=== PATIENT | female | born 1935 | race Caucasian/White ===

== ENCOUNTER 2019-12-30 22:06 | Observation (INO) | payer MEDICARE ==
[~2019-12-30] VITALS: Ht 165.1 cm; Wt 68.6 kg
--- NOTE | 2019-12-30 22:12 | PHYS DOC ---
General Adult HPI: HPI: ""...I have this bad vomiting spell..I ve had it before...but it always goes away in about a half hour...but not this time.. I did eat a little... Bit for breakfast.. But I went out with my daughter to [employer]... because she had to buy some stuff... but at about 330 I tried to eat and I got the severe chest pain and vomited up everything... Patient is a 84 year old female who presents with above hx and complaints severe chest and epigastric pain at 1530 hours. Pain radiates up into the left side of her chest. Patient's has remained nauseated since onset of her epigastric pain. Patient had a normal stool yesterday. Patient normally follows with Dr. Thomas. Has in the past follow-up with Dr. Costa for evaluation of her hypertension. Patient has not been able to take her hypertensive meds tonight because of the nausea and vomiting. No recent travel outside the [place] area. No specific ill contacts. Is on city water. No history of trauma. No history of bad food intake. Patient normally follows with Dr. Thomas for her care Review of Systems: Review of Systems: Constitutional: Denies fever or chills Eyes: Denies change in visual acuity HENT: Denies nasal congestion or sore throat Respiratory: Denies cough or shortness of breath Cardiovascular: Complains of central chest pain GI: Complaints of epigastric abdominal pain, nausea, vomiting. Denies, bloody stools or diarrhea : Denies dysuria Musculoskeletal: Denies back pain or joint pain Integument: Denies rash Neurologic: Denies headache, focal weakness or sensory changes Endocrine: Denies polyuria or polydipsia Lymphatic: Denies swollen glands Psychiatric: Denies depression or anxiety Heart Score: HEART Score for Chest Pain: HEART Score for Chest Pain Response (Comments) Value History Moderately Suspicious 1 ECG Nonspecific Repolarizatio 1 Age > 65 2 Risk Factors 1 or 2 Risk Factors 1 Troponin < Normal Limit 0 Total 5 Risk Factors: Risk Factors: DM, Current or recent (<one month) smoker, HTN, HLP, family history of CAD, obesity. Risk Scores: Score 0 - 3: 2.5% MACE over next 6 weeks - Discharge Home Score 4 - 6: 20.3% MACE over next 6 weeks - Admit for Clinical Observation Score 7 - 10: 72.7% MACE over next 6 weeks - Early Invasive Strategies Family History: Family History: Noncontributory to presentation. Current Medications: Current Meds: See nursing for home meds Allergies: Allergies: No known drug allergies Physical Exam: PE: Constitutional: Moderate acute distress, non-toxic appearance. [] HENT: Normocephalic, atraumatic, bilateral external ears normal, oropharynx dry,, no oral exudates, nose normal. [] Eyes: PERRLA, EOMI, conjunctiva normal, no discharge. Arcus Neck: Normal range of motion, no tenderness, supple, no stridor. [] Cardiovascular: Bradycardia heart rate regular rhythm, no murmur [] PMI to the left Lungs & Thorax: Bilateral breath sounds equal apex with few basilar crackles auscultation [] Abdomen: Bowel sounds normal, soft, no tenderness, no masses, no pulsatile masses. [] Skin: Warm, dry, no erythema, no rash. Poor turgor Back: No tenderness, no CVA tenderness. [] Extremities: No tenderness, no cyanosis, no clubbing, ROM intact, ankle edema. Arthritic changes Neurologic: Alert and oriented X 3, moves extremities on request, distal sensory, no dose focal deficits noted. [] Psychologic: Affect anxious, judgement normal, mood normal. [] EKG: EKG: My interpretation of EKG shows a sinus bradycardia 58 bpm. No findings acute STEMI of contralateral changes. [] Radiology/Procedures: Radiology/Procedures: [][address] [address] IMAGING REPORT Signed PATIENT: ZECHARIAH STINSON ACCOUNT: [id number] : 1935 LOCATION: ER AGE: 84 SEX: F EXAM STATUS: REG ER ORD. PHYSICIAN: JOHANA LUIS MD REASON: vomiting PROCEDURE: ACUTE ABDOMEN SERIES Exam: Acute abdominal series INDICATION: Vomiting TECHNIQUE: Frontal view of the chest with upright and supine views of the abdomen Comparisons: None FINDINGS: The cardiomediastinal silhouette and pulmonary vessels are within normal limits. The lung and pleural spaces are clear. Air and stool are noted throughout the colon to level the rectum in a nonobstructive bowel gas pattern. No suspicious masses or calcifications. Visualized osseous structures are unremarkable. IMPRESSION: 1. No acute cardiopulmonary process. 2. Nonobstructive bowel gas pattern. Electronically signed by: Carmencita Bloom MD (12/30/2019 11:08 PM) [id number] DICTATED AND SIGNED BY: CARMENCITA BLOOM MD DATE: 12/30/19 4180 CC: JOHANA LUIS MD; IRAM SANON ~ Course & Med Decision Making: Course & Med Decision Making Pertinent Labs and Imaging studies reviewed. (See chart for details) Patient admitted to Dr. Anderson with cardiology consult. Impression' 1. Chest pain 2. Elevated BUN and creatinine 3. Elevated d-dimer at 0.91 4. Bradycardia 5. Urinary tract infection [] Dragon Disclaimer: Dragon Disclaimer: This electronic medical record was generated, in whole or in part, using a voice recognition dictation system. Departure Departure: Disposition: 01 HOME/RESIDENCE PRIOR TO ADM Condition: STABLE Referrals: IRAM SANON (PCP) Justification of Admission: Justification of Admission: Justification of Admission Dx: Yes Angina: New-Onset Justification of Admission: Justification of Admission: Justification of Admission Dx: Yes CHF: Cardiac Arrhythmias Comments: CHEST PAIN Dragon Disclaimer This chart was dictated in whole or in part using Voice Recognition software in a busy, high-work load, and often noisy Emergency Department environment. It may contain unintended and wholly unrecognized errors or omissions. Dragon Disclaimer This chart was dictated in whole or in part using Voice Recognition software in a busy, high-work load, and often noisy Emergency Department environment. It may contain unintended and wholly unrecognized errors or omissions. JOHNAA LUIS MD Dec 30, 2019 22:11
[2019-12-30] MEDS ORDERED: ONDANSETRON PF 4 MG/2 ML VIAL. IVP ONE (22:40)
--- NOTE | 2019-12-30 23:10 | RAD ---
Exam: Acute abdominal series INDICATION: Vomiting TECHNIQUE: Frontal view of the chest with upright and supine views of the abdomen Comparisons: None FINDINGS: The cardiomediastinal silhouette and pulmonary vessels are within normal limits. The lung and pleural spaces are clear. Air and stool are noted throughout the colon to level the rectum in a nonobstructive bowel gas pattern. No suspicious masses or calcifications. Visualized osseous structures are unremarkable. IMPRESSION: 1. No acute cardiopulmonary process. 2. Nonobstructive bowel gas pattern. Electronically signed by: Carmencita Singh MD (12/30/2019 11:08 PM) [id number]
[2019-12-30] MEDS: IV RINGERS SOLUTION,LACTATED 1,000 ML IV SCH (23:33)
[2019-12-30 23:39] LABS: BASO # 0.1 x10^3/uL (0.0-0.2); BASO % 1 % (0-3); EOS # 0.2 x10^3/uL (0.0-0.7); EOS % 2 % (0-3); HEMOGLOBIN 12.3 g/dL (12.0-15.5); LYMPH # 1.8 x10^3/uL (1.0-4.8); LYMPH % 17 % (24-48); MEAN CORPUSCULAR HEMOGLOBIN 34 pg (25-35); MEAN CORPUSCULAR HGB CONC 34 g/dL (31-37); MEAN CORPUSCULAR VOLUME 98 fL (79-100); MONO # 0.9 x10^3/uL (0.0-1.1); MONO % 8 % (0-9); NEUT # 7.7 x10^3uL (1.8-7.7); NEUT % 73 % (31-73); PLATELET COUNT 306 x10^3/uL (140-400); RED BLOOD COUNT 3.66 x10^6/uL (3.50-5.40); RED CELL DISTRIBUTION WIDTH 13.7 % (11.5-14.5); WHITE BLOOD COUNT 10.5 x10^3/uL (4.0-11.0)
[2019-12-30 23:48] LABS: CALCIUM 9.5 mg/dL (8.5-10.1); GFR 23.9; POTASSIUM 3.6 mmol/L (3.5-5.1)
[2019-12-31] LABS: DIRECT BILIRUBIN 0.1 mg/dL (0.0-0.2); TOTAL BILIRUBIN 0.6 mg/dL (0.2-1.0); TOTAL PROTEIN 8.3 g/dL (6.4-8.2)
[2019-12-31 00:42] LABS: BACTERIA,URINE FEW /HPF (0-FEW); BILIRUBIN,URINE NEG (NEG); CLARITY,URINE HAZY; COLOR,URINE YELLOW; GLUCOSE,URINE NEG (NEG); NITRITE,URINE NEG (NEG); RBC,URINE OCC /HPF (0-2); SQUAMOUS EPITHELIAL CELL,UR FEW /LPF; UROBILINOGEN,URINE 0.2 mg/dL (0.2 mg/dL); WBC,URINE 20-40 /HPF (0-4)
[2019-12-31 00:43] LABS: BARBITURATES NEG (NEG); BENZODIAZEPINES NEG (NEG); CANNABINOIDS NEG (NEG); COCAINE NEG (NEG); METHADONE NEG (NEG); OPIATES NEG (NEG); PHENCYCLIDINE NEG (NEG)
[2019-12-31 00:44] LABS: AMPHETAMINE/METHAMPHETAMINE NEG (NEG)
[2019-12-31] MEDS ORDERED: ONDANSETRON PF 4 MG/2 ML VIAL. IVP ONE (01:30)
[2019-12-31] MEDS ORDERED: dilTIAZem 25 MG/5 ML VIAL IVP ONE (01:30)
[2019-12-31] MEDS ORDERED: levoFLOXacin 500 MG TABLET PO ONE (01:30)
[2019-12-31] MEDS ORDERED: ONDANSETRON PF 4 MG/2 ML VIAL. IVP PRN (02:00)
[2019-12-31] MEDS ORDERED: MORPHINE SULFATE 2 MG/ML DISP.SYRIN. IVP PRN (02:00)
[2019-12-31] MEDS: ASPIRIN CHEWABLE 81 MG TABLET. PO ONE ×2 (02:30→06:47)
--- NOTE | 2019-12-31 04:30 | NUR ---
The patient, ZECHARIAH STINSON, 84 y/o, F admitted by BASHIR HUNTER MD, to room 105, was given written information regarding hospital policies, unit procedures and contact persons. Valuables were checked and left with the patient. Medical history, family history and medications reviewed. Vital signs, physical and social needs assessed. Pt denies nausea or pain currently. She affirms she has this pain often due to a "hiatal hernia but usually the vomiting is just a little bit and doesn't last this long." Will continue to monitor.
[2019-12-31 05:10] VITALS: BP 161/73
[2019-12-31] MEDS ORDERED: LEVO75TA5 PO (05:10)
[2019-12-31] MEDS ORDERED: AMLO-186 PO (05:10)
[2019-12-31] MEDS ORDERED: ATOR10TA60 PO (05:10)
[2019-12-31] MEDS ORDERED: LEVO50TA5 PO (05:10)
[2019-12-31] MEDS ORDERED: CARV25TA2 PO (05:10)
[2019-12-31] MEDS ORDERED: CHLO25TA9 PO (05:10)
[2019-12-31] MEDS: IV RINGERS SOLUTION,LACTATED 1,000 ML IV SCH (06:47)
[2019-12-31] MEDS ORDERED: CARVEDILOL 12.5 MG TABLET PO SCH (08:00)
[2019-12-31] MEDS ORDERED: CHLORTHALIDONE 25 MG TABLET PO SCH (09:00)
[2019-12-31] MEDS ORDERED: FAMOTIDINE 20 MG/2 ML VIAL IVP SCH (09:00)
[2019-12-31] MEDS ORDERED: amLODIPine BESYLATE 5 MG TABLET PO SCH (09:00)
--- NOTE | 2019-12-31 10:15 | RAD ---
VENOUS LOWER EXT BILATERAL 12/31/2019 6:00 AM Clinical Information: Leg pain and bilateral lower extremity edema. Comparison: None. Technique: Multiple grayscale, color Doppler, and spectral Doppler sonographic images of the lower extremity venous structures were obtained. Findings: The right common femoral, femoral, and popliteal veins exhibit normal compression, respiratory phasicity, and augmentation. No intraluminal thrombi are identified. Color Doppler flow is demonstrated in the right posterior tibial veins. The left common femoral, femoral, and popliteal veins exhibit normal compression, respiratory phasicity, and augmentation. No intraluminal thrombi are identified. Color Doppler flow is demonstrated in the left posterior tibial veins. Greater saphenous veins are patent at the saphenofemoral junction. Impression: 1. No evidence of deep venous thrombosis. Electronically signed by: Lucretia Fabian MD (12/31/2019 10:11 AM) TUNDE
[2019-12-31 11:44] VITALS: BP 110/63
[2019-12-31 15:19] VITALS: BP 134/69
--- NOTE | 2019-12-31 15:21 | PDOC2 ---
CONSULT Date of Admission DATE: 12/31/19 TIME: 15:15 Reason for Consult: Chest pain Referring Physician: Dr. Anderson Chief Complaint Vomiting and chest pain Source: Chart review, Patient Problem List Problems Medical Problems: (1) Chest pain Status: Acute History of Present Illness The patient is an 84-year-old female who reported episodes of nausea and vomiting yesterday. She states that during 1 of her episodes of vomiting she developed chest pain and came to the emergency room. Patient has a history of occasional nausea and vomiting but no history of coronary disease or heart failure. EKG showed a sinus rhythm with no acute ischemic changes. Troponin has been normal x3. Other lab has shown an elevated creatinine of 2.0 and a potassium of 3.6. BNP was mildly elevated at 579. D-dimer was also mildly elevated 0.91 with a lower extremity venous ultrasound study showing no DVT. Acute abdominal series showed no acute changes. The patient states she is feeling significantly better today. Cardiovascular: HTN GI: GERD Renal/: Chronic renal insuff Family History: Hypertension Smoke: No ALCOHOL: none Current Medications Current Medications Lactated Ringer's 1,000 ml @ 100 mls/hr Q10H IV Last administered on 12/31/19at 06:47; Start 12/30/19 at 22:13; Stop 12/31/19 at 08:12; Status DC Ondansetron HCl (Zofran) 8 mg 1X ONCE IVP Last administered on 12/30/19at 23:33; Start 12/30/19 at 22:40; Stop 12/30/19 at 22:41; Status DC Levofloxacin (Levaquin) 500 mg 1X ONCE PO Last administered on 12/31/19at 01:46; Start 12/31/19 at 01:30; Stop 12/31/19 at 01:31; Status DC Diltiazem HCl (Cardizem Iv Push) 10 mg 1X ONCE IVP ; Start 12/31/19 at 01:30; Stop 12/31/19 at 01:31; Status Cancel Ondansetron HCl (Zofran) 4 mg 1X ONCE IVP Last administered on 12/31/19at 01:46; Start 12/31/19 at 01:30; Stop 12/31/19 at 01:31; Status DC Ondansetron HCl (Zofran) 4 mg PRN Q4HRS PRN IVP NAUSEA/VOMITING; Start 12/31/19 at 02:00; Stop 01/01/20 at 01:59 Morphine Sulfate (Morphine 2mg Syringe) 2 mg PRN Q4HRS PRN IVP PAIN; Start 12/31/19 at 02:00; Stop 01/01/20 at 01:59 Aspirin (Aspirin Chewable) 81 mg 1X ONCE PO ; Start 12/31/19 at 02:30; Stop 12/31/19 at 02:31; Status DC Famotidine (Pepcid Vial) 20 mg DAILY IVP Last administered on 12/31/19at 09:51; Start 12/31/19 at 09:00 Amlodipine Besylate (Norvasc) 5 mg DAILY PO Last administered on 12/31/19at 09:51; Start 12/31/19 at 09:00 Atorvastatin Calcium (Lipitor) 10 mg HS PO ; Start 12/31/19 at 21:00 Chlorthalidone (Thalitone) 12.5 mg DAILY PO Last administered on 12/31/19at 09:51; Start 12/31/19 at 09:00 Levothyroxine Sodium (Synthroid) 50 mcg Q48H PO ; Start 01/02/20 at 06:00 Levothyroxine Sodium (Synthroid) 75 mcg Q48H PO ; Start 01/01/20 at 06:00 Carvedilol (Coreg) 12.5 mg BIDWMEALS PO Last administered on 12/31/19at 09:50; Start 12/31/19 at 08:00 Active Scripts Active Reported Levothyroxine Sodium 75 Mcg Tablet 1 Tab PO DAILY Levothyroxine Sodium 50 Mcg Tablet 1 Tab PO DAILY Chlorthalidone (Chlorthalidone) 25 Mg Tablet 12.5 Mg PO DAILY Atorvastatin Calcium 10 Mg Tablet 1 Tab PO HS Amlodipine Besylate 5 Mg Tablet 1 Tab PO DAILY Carvedilol 25 Mg Tablet 12.5 Mg PO BID Allergies: Coded Allergies: No Known Drug Allergies (Unverified , 12/30/19) General: YES: Fatigue Cardiovascular: yes: Chest Pain Gastrointestinal: YES: Nausea, Vomiting General: mild distress HEENT: Atraumatic Lungs: Clear to auscultation Heart: Regular rate Abdomen: Normal bowel sounds VITALS Vital Signs Date Time Temp Pulse Resp B/P (MAP) Pulse Ox O2 Delivery O2 Flow Rate FiO2 12/31/19 11:44 98.2 57 20 110/63 (79) 99 Room Air Labs Laboratory Tests Test 12/30/19 23:00 12/31/19 00:23 12/31/19 07:00 12/31/19 09:23 White Blood Count 10.5 x10^3/uL (4.0-11.0) Red Blood Count 3.66 x10^6/uL (3.50-5.40) Hemoglobin 12.3 g/dL (12.0-15.5) Hematocrit 36.0 % (36.0-47.0) Mean Corpuscular Volume 98 fL (79-100) Mean Corpuscular Hemoglobin 34 pg (25-35) Mean Corpuscular Hemoglobin Concent 34 g/dL (31-37) Red Cell Distribution Width 13.7 % (11.5-14.5) Platelet Count 306 x10^3/uL (140-400) Neutrophils (%) (Auto) 73 % (31-73) Lymphocytes (%) (Auto) 17 % (24-48) Monocytes (%) (Auto) 8 % (0-9) Eosinophils (%) (Auto) 2 % (0-3) Basophils (%) (Auto) 1 % (0-3) Neutrophils # (Auto) 7.7 x10^3uL (1.8-7.7) Lymphocytes # (Auto) 1.8 x10^3/uL (1.0-4.8) Monocytes # (Auto) 0.9 x10^3/uL (0.0-1.1) Eosinophils # (Auto) 0.2 x10^3/uL (0.0-0.7) Basophils # (Auto) 0.1 x10^3/uL (0.0-0.2) Prothrombin Time 10.1 SEC (9.4-11.4) Prothromb Time International Ratio 1.0 (0.9-1.1) Activated Partial Thromboplast Time 24 SEC (23-33) D-Dimer (Saniya) 0.91 mg/L (0.00-0.50) Sodium Level 138 mmol/L (136-145) Potassium Level 3.6 mmol/L (3.5-5.1) Chloride Level 101 mmol/L (98-107) Carbon Dioxide Level 26 mmol/L (21-32) Anion Gap 11 (6-14) Blood Urea Nitrogen 25 mg/dL (7-20) Creatinine 2.0 mg/dL (0.6-1.0) Estimated GFR (Cockcroft-Gault) 23.9 Glucose Level 98 mg/dL (70-99) Calcium Level 9.5 mg/dL (8.5-10.1) Magnesium Level 2.0 mg/dL (1.8-2.4) Total Bilirubin 0.6 mg/dL (0.2-1.0) Direct Bilirubin 0.1 mg/dL (0.0-0.2) Aspartate Amino Transf (AST/SGOT) 26 U/L (15-37) Alanine Aminotransferase (ALT/SGPT) 21 U/L (14-59) Alkaline Phosphatase 83 U/L (46-116) Creatine Kinase 157 U/L (26-192) Troponin I Quantitative < 0.017 ng/mL (0-0.055) < 0.017 ng/mL (0-0.055) < 0.017 ng/mL (0-0.055) [id number]-Type Natriuretic Peptide 579 pg/mL (0-449) Total Protein 8.3 g/dL (6.4-8.2) Albumin 4.0 g/dL (3.4-5.0) Amylase Level 83 U/L (25-115) Lipase 118 U/L (73-393) Thyroid Stimulating Hormone (TSH) 0.932 uIU/mL (0.358-3.740) Urine Collection Type Unknown Urine Color Yellow Urine Clarity Hazy Urine pH 6.5 Urine Specific [place] 1.015 Urine Protein Trace (NEG-TRACE) Urine Glucose (UA) Neg mg/dL (NEG) Urine Ketones (Stick) Neg mg/dL (NEG) Urine Blood Trace (NEG) Urine Nitrite Neg (NEG) Urine Bilirubin Neg (NEG) Urine Urobilinogen Dipstick 0.2 mg/dL (0.2 mg/dL) Urine Leukocyte Esterase Mod (NEG) Urine RBC Occ /HPF (0-2) Urine WBC 20-40 /HPF (0-4) Urine Squamous Epithelial Cells Few /LPF Urine Bacteria Few /HPF (0-FEW) Urine Opiates Screen Neg (NEG) Urine Methadone Screen Neg (NEG) Urine Barbiturates Neg (NEG) Urine Phencyclidine Screen Neg (NEG) Urine Amphetamine/Methamphetamine Neg (NEG) Urine Benzodiazepines Screen Neg (NEG) Urine Cocaine Screen Neg (NEG) Urine Cannabinoids Screen Neg (NEG) Urine Ethyl Alcohol Neg (NEG) Triglycerides Level 79 mg/dL (0-150) Cholesterol Level 162 mg/dL (0-200) LDL Cholesterol, Calculated 89 mg/dL (0-100) VLDL Cholesterol, Calculated 15 mg/dL (0-40) Non-HDL Cholesterol Calculated 104 mg/dL (0-129) HDL Cholesterol 58 mg/dL (40-60) Cholesterol/HDL Ratio 2.0 Images Acute abdominal series shows no acute changes. Lower extremity venous ultrasound shows no DVT Assessment/Plan 1. Chest pain. As described by the patient the chest pain was associated with vomiting. EKG shows no acute ischemic changes. Troponin has been normal x3. Will continue on present treatment. Pain may have been secondary to GI causes but will continue to monitor. Consider outpatient MPI testing. 2. Nausea and vomiting. Largely resolved. Acute abdominal series shows no significant changes. 3. Elevated creatinine of 2.0. Potassium 3.6. Possibly due to dehydration with the patient's vomiting. Is being treated with IV fluids and would recheck lab in the morning. 4. Possible urinary tract infection. 5. Hypertension. Controlled at this time would continue to monitor. Thank you for allowing us to participate in the care of your patient. MARCUS BURROWS MD Dec 31, 2019 15:21
[2019-12-31] MEDS ORDERED: LANS30TA6 PO (16:02)
[2019-12-31] MEDS ORDERED: CEFD300C PO (16:02)
--- NOTE | 2019-12-31 17:36 | SSS ---
ADMIT DATE: 12/31/2019 HISTORY OF PRESENT ILLNESS: The patient is an 84-year-old female patient who came to the Emergency Room complaining of severe chest and epigastric pain that started around 1530. The pain radiates into her left side of the chest. The patient has remained nauseated since onset of her epigastric pain. She normally follows with Dr. Ta, has in the past followed up with Dr. Costa for evaluation of hypertension, has had also a stress test. She was extensively evaluated in the Emergency Room and her first set of cardiac enzyme was less than 0.017. Her EKG showed that she was in sinus bradycardia with heart rate of 58 beats per minute with no finding of acute ST elevation myocardial infarction and therefore, she was admitted and have 2 more sets of cardiac enzyme and we did consult the Cardiology for evaluation and treatment. Apparently, she has 3 sets of cardiac enzymes that were all negative. She apparently follows with her primary personal security specialist, Dr. Costa. Her fasting lipid profile were also well within the therapeutic range and she was seen by Dr. Ventura who felt that this is all related to her gastroesophageal reflux disease and therefore, the patient was discharged home on Prevacid as she discontinued her ranitidine after it was withdrawn from the market. She was noted also to have urinary tract infection and she was discharged home on cefdinir. PAST MEDICAL HISTORY: Significant for hypertension, hyperlipidemia, chronic kidney disease, hypothyroidism, and osteoarthritis. PAST SURGICAL HISTORY: Significant for total abdominal hysterectomy, bilateral salpingo-oophorectomy. She has bilateral cataract extraction and thyroidectomy. ALLERGIES: She has no known drug allergies. MEDICATIONS: She is currently on the following medication, atorvastatin calcium 10 mg at bedtime, carvedilol 12.5 mg twice a day, amlodipine 5 mg once a day, chlorthalidone 12.5 mg once a day, levothyroxine sodium 125 mcg once a day. FAMILY HISTORY: She has one older brother and 1 older sister, has 3 sisters are younger, all of them apparently healthy. Her father at age of 77 because of blood disease and mother at the age of 87 because of cerebrovascular accident. SOCIAL HISTORY: She is , has 2 sons and 1 daughter. She never smoked, does not drink alcohol or use any drugs. 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 REVIEW OF SYSTEMS: The patient denied any blurring of vision, had had bilateral cataract extraction, but denied any glaucoma or macular degeneration. Denied any earache, tinnitus or sensorineural deafness. Denied any nosebleeds, stuffy nose or postnasal drip. Denied any sore throat, sore tongue, toothache, hoarseness of voice. Did complain of occasional difficulty swallowing, particularly to solid foods. No nausea, no vomiting, no diarrhea or constipation. Denied any hematemesis, melena, or hematochezia. Denied any dysuria, frequency or hematuria. Did complain of chest pain related to her food intake that gets stuck in her esophagus, but denied any orthopnea or paroxysmal nocturnal dyspnea. Denied any cough, phlegm or hemoptysis. Denied any dizziness, lightheadedness, or vertigo. Denied any chills, rigors or fever. PHYSICAL EXAMINATION: GENERAL: On examining her, she looked well and was clearly in no apparent respiratory distress. No pallor, jaundice, cyanosis or thyromegaly. No jugular venous distention. No limb edema. VITAL SIGNS: Her heart rate on admission was 63, blood pressure was 110/63, temperature was 98.2, respiratory rate was 20, and oxygen saturation was 99%. HEAD, EYES, EARS, NOSE AND THROAT: Showed normocephalic and atraumatic. NECK: Supple. HEART: Showed normal first and second heart sounds. No gallop or murmur. CHEST: Clear to auscultation. No crepitation or rhonchi. ABDOMEN: Distended, soft, nontender. NEUROLOGIC: She was grossly intact. LABORATORY DATA: Showed a white cell count of 10,500; hemoglobin 12; hematocrit 36; MCV 98; and platelet count 306,000. Her serum sodium was 138, potassium 3.6, chloride 101, bicarbonate 26, anion gap of 11, BUN 25, creatinine 2, estimated GFR was 23 mL per minute. Her glucose was 98, calcium was 9.5, magnesium 2. Total bilirubin, AST, ALT, alkaline phosphatase were normal. Her total protein was 8.3, albumin 4. Her amylase and lipase were normal and her TSH was 0.932 which is well within normal range. Her prothrombin time, INR and aPTT were normal. D-dimer was slightly elevated at 0.91. Her urinalysis showed the urine was yellow, hazy with a pH of 6.5, specific gravity of 1.015. The urine was negative for glucose, ketones or trace of blood, negative for nitrite. There was moderate amount of leukocyte esterase and 20-40 wbc's. Her toxic screen was negative. Her acute abdomen series showed the cardiomediastinal silhouette and pulmonary vessels are within normal limits. The lungs and pleural spaces are clear. Air and stool are noted throughout the colon and nonobstructive bowel gas pattern. No suspicious masses, calcifications. Doppler ultrasound of both lower extremities showed no evidence of deep vein thrombosis. She was seen by the personal security specialist and the patient was discharged home as her acute myocardial infarction ruled out, most likely explanation is that she has gastroesophageal reflux disease. We discharged her on Prevacid SoluTab 30 mg once a day and also cefdinir 300 mg once a day for 5 days. She was also discharged on atorvastatin 10 mg at bedtime, carvedilol 12.5 mg twice a day, amlodipine 5 mg once a day, chlorthalidone 12.5 mg once a day and levothyroxine 125 mcg once a day. FINAL DISCHARGE DIAGNOSES: 1. Chest pain, likely due to acid reflux. 2. Hypertension. 3. Hyperlipidemia. 4. Chronic kidney disease. 5. Hypothyroidism. 6. Urinary tract infection. BASHRI HUNTER MD DR: JARRETT/susan JOB#: [id number] / [id number]
[2019-12-31] MEDS ORDERED: ATORVASTATIN CALCIUM 10 MG TABLET. PO SCH (21:00)
[2020-01-01] MEDS ORDERED: LEVOTHYROXINE 75 MCG TABLET PO SCH (06:00)
[2020-01-02] MEDS ORDERED: LEVOTHYROXINE 50 MCG TABLET PO SCH (06:00)
--- NOTE | 2020-01-02 07:14 | EKG ---
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
== END 2019-12-31 16:44 | disposition home or self-care (01) ==
LOC: ER 22:06 → 1 SOUTH 12-31 01:30
PROVIDERS: ADMIT Internal Medicine; ATTEND Internal Medicine
DX: R07.89 Other chest pain (principal); R11.2 Nausea with vomiting, unspecified; E78.5 Hyperlipidemia, unspecified; I12.9 Hypertensive chronic kidney disease with stage 1 through stage 4 chronic kidney disease, or unspecified chronic kidney disease; N18.9 Chronic kidney disease, unspecified; E89.0 Postprocedural hypothyroidism; N39.0 Urinary tract infection, site not specified; M19.90 Unspecified osteoarthritis, unspecified site; R79.89 Other specified abnormal findings of blood chemistry; R00.1 Bradycardia, unspecified; K21.9 Gastro-esophageal reflux disease without esophagitis; R13.10 Dysphagia, unspecified; Z79.899 Other long term (current) drug therapy; Z90.710 Acquired absence of both cervix and uterus; Z98.41 Cataract extraction status, right eye; Z98.42 Cataract extraction status, left eye
CPT/HCPCS: 36415; 74022; 80048; 80061; 80076; 80307; 81001; 82150; 82550; 83690; 83735; 83880; 84443; 84484; 85025; 85379; 85610; 85730; 87086; 93005; 93970; 96361; 96374; 96375; 96376; 99285; G0378; J2405; J3490; J7120; G0379; 99284-25

== ENCOUNTER → 2021-01-21 | Outpatient (CLI) | payer MEDICARE ==
[~2021-01-21] MED LIST: AMLO-186 PO; ATOR10TA60 PO; CARV25TA2 PO; CEFD300C PO; CHLO25TA9 PO; LANS30TA6 PO; LEVO50TA5 PO; LEVO75TA5 PO
--- NOTE | 2021-01-21 16:26 | RAD ---
EXAM: Pelvis and right hip, 2 views. HISTORY: Pain. Fall. COMPARISON: None. FINDINGS: A frontal view the pelvis and 2 views of the right hip are obtained. There is no fracture, dislocation or subluxation. There is minimal marginal femoral head spurring. There is degenerative ch froylan involving the lumbar spine. There is a pessary within the vagina. IMPRESSION: Minimal right hip osteoarthritis. No acute osseous finding. Electronically signed by: Mary Andrade MD (01/21/2021 4:23 PM) [id number]
== END ==
LOC: DXRAD 15:52
PROVIDERS: ATTEND Family Medicine
DX: M16.11 Unilateral primary osteoarthritis, right hip (principal); M77.8 Other enthesopathies, not elsewhere classified; W19.XXXA Unspecified fall, initial encounter
CPT/HCPCS: 73502

== ENCOUNTER → 2021-03-07 | Outpatient (CLI) | payer MEDICARE ==
--- NOTE | 2021-03-07 11:52 | RAD ---
EXAM: Bilateral lower extremity venous Doppler. HISTORY: Bilateral lower extremity pain/swelling. COMPARISON: None. FINDINGS: Grayscale and Doppler analysis of the both lower extremity deep venous systems was performe d with graded compression and augmentation. The common femoral, greater saphenous, superficial femora l, popliteal and calf veins were assessed. There is no evidence of deep venous thrombosis. IMPRESSION: 1. No evidence of deep venous thrombosis. Electronically signed by: Reinaldo David MD (03/07/2021 11:49 AM) [id number]
== END ==
LOC: US 10:28
PROVIDERS: ATTEND Family Medicine
DX: M79.604 Pain in right leg (principal); M79.605 Pain in left leg; G57.93 Unspecified mononeuropathy of bilateral lower limbs
CPT/HCPCS: 93970

== ENCOUNTER → 2021-05-08 | Outpatient (CLI) | payer MEDICARE ==
--- NOTE | 2021-05-08 14:07 | RAD ---
EXAM: Lower extremity arterial Doppler sonogram with ankle-brachial indices (LUISITO). HISTORY: Lower extremity pain. Hypertension. Atherosclerosis. TECHNIQUE: Doppler sonographic evaluation of the lower extremities was performed and pressure reading s were assessed. FINDINGS: Right brachial pressure: 160 mmHg Left brachial pressure: 146 mmHg Right ankle pressure (dorsalis pedis artery): 158 mmHg Right ankle pressure (posterior tibial artery): 160 mmHg Right LUISITO: 1.0 Left ankle pressure (dorsalis pedis artery): 148 mmHg Left ankle pressure (posterior tibial artery): 144 mmHg Left LUISITO: 0.9 IMPRESSION: 1. Normal right ankle-brachial index. 2. Borderline normal left ankle-brachial index. Electronically signed by: Mary Andrade MD (05/08/2021 2:05 PM) [facility]
== END ==
LOC: US 12:46
PROVIDERS: ATTEND Family Medicine
DX: M79.604 Pain in right leg (principal); M79.605 Pain in left leg
CPT/HCPCS: 93923

== ENCOUNTER → 2021-07-10 | Outpatient (CLI) | payer MEDICARE ==
--- NOTE | 2021-07-10 17:26 | RAD ---
US RENAL BILAT History: Reason: RENAL CYSTS / Spl. Instructions: / History: Comparison: None. Procedure: Transabdominal ultrasound images are obtained of the kidneys and bladder. Findings: Right kidney: measures 11.2 x 5.6 x 4.9 cm. Increased renal cortical echogenicity. Numerous right laura al cysts. Largest inferior cyst measures 9.3 x 7.6 x 6.4 cm. No hydronephrosis. Left kidney: measures 10.4 x 4.5 x 4.4 cm. Increased renal cortical echogenicity. Numerous left renal cysts. Mid renal cyst largest measures 6.2 x 4.8 x 5.0 cm. Septated inferior cyst measures 3.4 x 3.0 x 3.4 cm with debris. No hydronephrosis. Urinary bladder: No urinary bladder wall thickening. Bilateral ureteral jets not identified during ti me of imaging. The IVC is normal caliber. The visualized abdominal aorta is normal caliber. IMPRESSION: 1. Numerous bilateral renal cysts. 2. Left inferior renal cyst with septation and debris. Bosniak 2F. Recommend 6 month ultrasound foll ow-up. 3. Bilateral increased renal cortical echogenicity, may indicate medical renal disease. Electronically signed by: Jaspreet Cristobal DO (07/10/2021 5:23 PM) [id number]
== END ==
LOC: US 13:55
PROVIDERS: ATTEND Nurse Practitioner Adult Health
DX: N28.1 Cyst of kidney, acquired (principal); N28.89 Other specified disorders of kidney and ureter
CPT/HCPCS: 76770